=== PATIENT | male | born 1955 | race Two or more races ===

== ENCOUNTER 2019-02-25 16:55 | Emergency (ER) | payer MEDICARE, MEDICAID ==
[~2019-02-25] VITALS: Ht 170.2 cm; Wt 75.0 kg
[2019-02-25] MEDS ORDERED: TETANUS, DIPHTHERIA, PERTUSSIS VAC/PF 0.5ML (>7YR OLD) IM ONE (17:45)
[2019-02-25] MEDS ORDERED: FENTANYL CITRATE/PF 50MCG/ML 2ML VIAL IV ONE ×2 (17:45→22:00)
[2019-02-25 18:14] LABS: CLARITY URINE CLEAR (CLEAR); COLOR URINE YELLOW (YELLOW); KETONES URINE NEGATIVE (NEGATIVE); LEUKOCYTE ESTERASE URINE NEGATIVE (NEGATIVE); NITRITE URINE NEGATIVE (NEGATIVE); OCCULT BLOOD URINE NEGATIVE (NEGATIVE); PH URINE 5.5 (4.5-8.0); PROTEIN URINE 1+ (NEGATIVE); SPECIFIC GRAVITY URINE 1.027 (1.005-1.030)
[2019-02-25 19:00] LABS: BASOPHILS % 0.2 % (0.0-2.0); EOSINOPHILS % 0.6 % (0.0-5.0); HEMATOCRIT. 30.7 % (42.0-52.0); HEMOGLOBIN. 9.8 g/dL (14.0-18.0); LYMPHOCYTES % 40.3 % (20.0-50.0); MEAN CORPUSCULAR HEMOGLOBIN 17.7 pg (28.0-32.0); MEAN CORPUSCULAR VOLUME 55.4 fL (80.0-94.0); MEAN PLATELET VOLUME 8.6 fl (7.4-10.4); MONOCYTES % 3.7 % (2.0-8.0); NEUTROPHILS % 55.2 % (40.0-76.0); PLATELET 150 x1000/uL (130-400); RED BLOOD CELL COUNT 5.53 mill/uL (4.7-6.1); RED CELL DISTRIBUTION WIDTH 19.5 % (11.6-14.6)
[2019-02-25 19:06] LABS: CHLORIDE 107 mEq/L (98-107)
[2019-02-25 19:08] LABS: PARTIAL THROMBOPLASTIN TIME 22.2 sec (23.4-31.0); PROTHROMBIN TIME 10.4 sec (9.6-11.0)
[2019-02-25 19:57] LABS: PLATELET ESTIMATE NORMAL
[2019-02-25] MEDS ORDERED: IOHEXOL-300 100 ML BOTTLE ONE (20:44)
[2019-02-25 21:35] LABS: HEMATOCRIT. 30.5 % (42.0-52.0); HEMOGLOBIN. 9.6 g/dL (14.0-18.0); MEAN CORPUSCULAR HEMOGLOBIN 17.6 pg (28.0-32.0); MEAN CORPUSCULAR VOLUME 55.6 fL (80.0-94.0); MEAN PLATELET VOLUME 8.6 fl (7.4-10.4); PLATELET 179 x1000/uL (130-400); RED BLOOD CELL COUNT 5.48 mill/uL (4.7-6.1); RED CELL DISTRIBUTION WIDTH 19.6 % (11.6-14.6)
[2019-02-25 22:42] LABS: PLATELET ESTIMATE NORMAL
[2019-02-25 23:11] VITALS: BP 166/68
== END 2019-02-25 22:58 | disposition short-term general hospital (02) ==
LOC: ER 16:55
DX: S72.142A Displaced intertrochanteric fracture of left femur, initial encounter for closed fracture (principal); E11.9 Type 2 diabetes mellitus without complications; I10 Essential (primary) hypertension; E78.00 Pure hypercholesterolemia, unspecified; G31.89 Other specified degenerative diseases of nervous system; Z86.73 Personal history of transient ischemic attack (TIA), and cerebral infarction without residual deficits; W11.XXXA Fall on and from ladder, initial encounter; Y93.9 Activity, unspecified; Y92.9 Unspecified place or not applicable; Y99.8 Other external cause status
CPT/HCPCS: 36415; 70450; 72125; 73502; 73552; 74177; 80053; 81003; 82962; 85025; 85610; 85730; 86850; 86900; 86901; 90471; 90715; 96374; 96376; 99285; J3010; Q9967

== ENCOUNTER 2019-03-03 19:27 | Inpatient (IN) | payer MEDICARE, MEDICAID ==
[~2019-03-03] VITALS: Ht 170.2 cm; Wt 71.7 kg
[2019-03-03] MEDS: SODIUM CHLORIDE 0.9% 1,000 ML IV SCH (02:00)
[2019-03-03] MEDS ORDERED: SODIUM CHLORIDE 0.9% 1,000 ML IV ONE (20:01)
[2019-03-03] MEDS ORDERED: ONDANSETRON HCL 4MG/2ML INJ IV STA (20:01)
[2019-03-03] MEDS ORDERED: MORPHINE SULFATE 4 MG/ML CPJ (NOT FOR IM USE) IV STA (20:01)
[2019-03-03 21:00] LABS: CHLORIDE 99 mEq/L (98-107)
[2019-03-03 21:04] LABS: BASOPHILS % 0.8 % (0.0-2.0); EOSINOPHILS % 3.5 % (0.0-5.0); LYMPHOCYTES % 26.9 % (20.0-50.0); MEAN CORPUSCULAR HEMOGLOBIN 17.3 pg (28.0-32.0); MEAN CORPUSCULAR VOLUME 54.8 fL (80.0-94.0); MEAN PLATELET VOLUME 9.8 fl (7.4-10.4); MONOCYTES % 7.8 % (2.0-8.0); PLATELET 182 x1000/uL (130-400); RED BLOOD CELL COUNT 3.87 mill/uL (4.7-6.1); RED CELL DISTRIBUTION WIDTH 18.4 % (11.6-14.6)
[2019-03-03 21:09] LABS: HEMATOCRIT. 21.2 % (42.0-52.0); HEMOGLOBIN. 6.7 g/dL (14.0-18.0)
[2019-03-03 22:07] LABS: PLATELET ESTIMATE NORMAL
[2019-03-03] MEDS ORDERED: INSULIN LISPRO 100 UNITS/ML SUBCUT NR (22:30)
[2019-03-04] MEDS ORDERED: ONDANSETRON HCL 4MG/2ML INJ IV PRN
[2019-03-04] MEDS ORDERED: CLONIDINE 0.1MG TABLET PO PRN
[2019-03-04] MEDS ORDERED: IPRATROPIUM/ALBUTEROL 0.5-3(2.5)MG/3ML NEB NEB PRN
[2019-03-04] MEDS: HYDROMORPHONE HCL/PF 2MG/ML CPJ IV PRN ×3 (01:04→17:12)
[2019-03-04 05:25] LABS: MEAN CORPUSCULAR HEMOGLOBIN 17.8 pg (28.0-32.0); MEAN CORPUSCULAR VOLUME 54.8 fL (80.0-94.0); MEAN PLATELET VOLUME 8.9 fl (7.4-10.4); PLATELET 169 x1000/uL (130-400); RED BLOOD CELL COUNT 3.82 mill/uL (4.7-6.1)
[2019-03-04 05:27] LABS: CHLORIDE 102 mEq/L (98-107)
[2019-03-04 05:29] LABS: HEMATOCRIT. 20.9 % (42.0-52.0); HEMOGLOBIN. 6.8 g/dL (14.0-18.0)
[2019-03-04 05:35] LABS: TOTAL IRON BINDING CAPACITY 212 ug/dL (250-450)
[2019-03-04 07:21] LABS: PLATELET ESTIMATE NORMAL
[2019-03-04 10:00] VITALS: BP 137/58
[2019-03-04 10:50] VITALS: BP 129/74
[2019-03-04] MEDS: OMEPRAZOLE 20MG CAPSULE EXTENDED RELEASE PO SCH (11:11)
[2019-03-04] MEDS: ACETAMINOPHEN 325MG TABLET PO PRN (11:11)
[2019-03-04 11:15] VITALS: BP 137/58
[2019-03-04] MEDS ORDERED: DEXTROSE 50% WATER 50ML SYRINGE IV PRN (11:30)
[2019-03-04 12:20] VITALS: BP 137/58
[2019-03-04] MEDS: BLOOD SUGAR DIAGNOSTIC STRIP TEST SCH ×3 (12:59→21:20)
[2019-03-04] MEDS: INSULIN LISPRO 100 UNITS/ML SUBCUT SCH ×3 (13:29→21:20)
[2019-03-04] MEDS: SODIUM CHLORIDE 0.9% 1,000 ML IV SCH (13:42)
[2019-03-04 16:00] VITALS: BP 128/64
[2019-03-04] MEDS ORDERED: LISI10TA5 MT (18:28)
[2019-03-04] MEDS ORDERED: INSU100I28 SQ (18:28)
[2019-03-04] MEDS ORDERED: INSLIS SUBCUT (18:29)
[2019-03-04 20:00] VITALS: BP 138/60
[2019-03-04] MEDS: INSULIN GLARGINE UD 100 UNITS/ML SYR SUBCUT SCH (22:25)
[2019-03-05] VITALS: BP 148/58
[2019-03-05 00:57] LABS: HEMATOCRIT 24.3 % (42.0-52.0); HEMOGLOBIN 8.1 g/dL (14.0-18.0)
[2019-03-05] MEDS: SODIUM CHLORIDE 0.9% 1,000 ML IV SCH ×2 (03:01→17:28)
[2019-03-05 04:00] VITALS: BP 147/60
[2019-03-05] MEDS: BLOOD SUGAR DIAGNOSTIC STRIP TEST SCH ×4 (07:23→20:32)
[2019-03-05 08:00] VITALS: BP 159/65
[2019-03-05] MEDS: INSULIN LISPRO 100 UNITS/ML SUBCUT SCH ×4 (08:09→20:46)
[2019-03-05] MEDS: OMEPRAZOLE 20MG CAPSULE EXTENDED RELEASE PO SCH (08:09)
[2019-03-05] MEDS: HYDROMORPHONE HCL/PF 2MG/ML CPJ IV PRN (09:45)
[2019-03-05 12:00] VITALS: BP 159/66
[2019-03-05 16:00] VITALS: BP 131/63
[2019-03-05 20:00] VITALS: BP 141/47
[2019-03-05] MEDS: ACETAMINOPHEN 325MG TABLET PO PRN (20:39)
[2019-03-05] MEDS: INSULIN GLARGINE UD 100 UNITS/ML SYR SUBCUT SCH (22:08)
[2019-03-06] VITALS: BP 137/62
[2019-03-06 04:00] VITALS: BP 140/59
[2019-03-06] MEDS: SODIUM CHLORIDE 0.9% 1,000 ML IV SCH (05:22)
[2019-03-06] MEDS: BLOOD SUGAR DIAGNOSTIC STRIP TEST SCH ×3 (06:38→17:43)
[2019-03-06] MEDS: HYDROMORPHONE HCL/PF 2MG/ML CPJ IV PRN (06:44)
[2019-03-06] MEDS: OMEPRAZOLE 20MG CAPSULE EXTENDED RELEASE PO SCH (06:44)
[2019-03-06 08:00] VITALS: BP 148/64
[2019-03-06] MEDS: INSULIN LISPRO 100 UNITS/ML SUBCUT SCH ×3 (08:20→18:07)
[2019-03-06 12:00] VITALS: BP 138/70
[2019-03-06 12:25] LABS: HEMATOCRIT. 26.1 % (42.0-52.0); MEAN CORPUSCULAR HEMOGLOBIN 18.6 pg (28.0-32.0); MEAN CORPUSCULAR VOLUME 57.5 fL (80.0-94.0); MEAN PLATELET VOLUME 8.5 fl (7.4-10.4); PLATELET 260 x1000/uL (130-400); RED BLOOD CELL COUNT 4.54 mill/uL (4.7-6.1); RED CELL DISTRIBUTION WIDTH 18.9 % (11.6-14.6)
[2019-03-06 12:43] LABS: HEMOGLOBIN. 8.4 g/dL (14.0-18.0)
[2019-03-06 14:08] LABS: PLATELET ESTIMATE NORMAL
[2019-03-06] MEDS: ACETAMINOPHEN 325MG TABLET PO PRN (15:54)
[2019-03-06 16:00] VITALS: BP 129/71
[2019-03-06 16:54] VITALS: BP 129/71
== END 2019-03-06 18:51 | DRG 812 ==
LOC: ER 20:19 → 7WST 22:00 → CANRESERV 22:35 → ENRESERV 22:35 → EDBEDREQTM 03-04 00:21 → EDBEDREQSVC 03-04 00:21 → ENRESERV 03-04 07:36
PROVIDERS: ADMIT Internal Medicine; ATTEND Internal Medicine
PROC: 30233N1 Transfusion of Nonautologous Red Blood Cells into Peripheral Vein, Percutaneous Approach (ICD-10-PCS; principal; 2019-03-04)
DX: D56.9 Thalassemia, unspecified (principal); I69.354 Hemiplegia and hemiparesis following cerebral infarction affecting left non-dominant side; E87.1 Hypo-osmolality and hyponatremia; I42.2 Other hypertrophic cardiomyopathy; E44.1 Mild protein-calorie malnutrition; D64.9 Anemia, unspecified; I10 Essential (primary) hypertension; E11.9 Type 2 diabetes mellitus without complications; R26.9 Unspecified abnormalities of gait and mobility; H54.62 Unqualified visual loss, left eye, normal vision right eye; Z68.24 Body mass index [BMI] 24.0-24.9, adult
CPT/HCPCS: 36415; 71045; 73502; 80048; 82962; 83540; 83550; 85014; 85018; 86850; 86900; 86920; 93970; 97162; 97166; 99285; J1170; J1815; J2270; J2405; J7030; J7040; P9016

== ENCOUNTER 2019-03-06 18:55 | Inpatient (IN) | payer MEDICARE, MEDICAID ==
[~2019-03-06] VITALS: Ht 170.2 cm; Wt 80.7 kg
[~2019-03-06 18:55] MED LIST: INSLIS SUBCUT; INSU100I28 SQ; LISI10TA5 MT
[2019-03-06 19:00] VITALS: BP 140/54
[2019-03-06 20:00] VITALS: BP 140/54
[2019-03-06] MEDS ORDERED: DEXTROSE 50% WATER 50ML SYRINGE IV PRN (20:45)
[2019-03-06] MEDS ORDERED: IPRATROPIUM/ALBUTEROL 0.5-3(2.5)MG/3ML NEB HHN PRN (20:45)
[2019-03-06] MEDS ORDERED: CLONIDINE 0.1MG TABLET PO PRN (20:45)
[2019-03-06] MEDS ORDERED: ONDANSETRON HCL 4MG TABLET PO PRN (20:45)
[2019-03-06] MEDS: BLOOD SUGAR DIAGNOSTIC STRIP TEST SCH (21:49)
[2019-03-06] MEDS: INSULIN LISPRO 100 UNITS/ML SUBCUT SCH (21:58)
[2019-03-06] MEDS ORDERED: INSULIN GLARGINE UD 100 UNITS/ML SYR SUBCUT SCH ×2 (22:00→23:00)
[2019-03-07] MEDS: HYDROCODONE/ACETAMINOPHEN 5/325MG TABLET PO PRN ×3 (04:58→21:12)
[2019-03-07] MEDS: OMEPRAZOLE 20MG CAPSULE EXTENDED RELEASE PO SCH (05:40)
[2019-03-07] MEDS: INSULIN LISPRO 100 UNITS/ML SUBCUT SCH ×6 (06:30→21:07)
[2019-03-07] MEDS: BLOOD SUGAR DIAGNOSTIC STRIP TEST SCH ×4 (06:30→21:07)
[2019-03-07 07:49] LABS: HEMATOCRIT. 25.8 % (42.0-52.0); HEMOGLOBIN. 8.5 g/dL (14.0-18.0); MEAN CORPUSCULAR HEMOGLOBIN 18.9 pg (28.0-32.0); MEAN CORPUSCULAR VOLUME 57.8 fL (80.0-94.0); MEAN PLATELET VOLUME 8.8 fl (7.4-10.4); PLATELET 281 x1000/uL (130-400); RED BLOOD CELL COUNT 4.47 mill/uL (4.7-6.1); RED CELL DISTRIBUTION WIDTH 19.6 % (11.6-14.6)
[2019-03-07 07:57] LABS: CHLORIDE 102 mEq/L (98-107)
[2019-03-07 08:00] VITALS: BP 141/60
[2019-03-07] MEDS: ACETAMINOPHEN 325MG TABLET PO PRN (10:43)
[2019-03-07 10:47] LABS: TOTAL IRON BINDING CAPACITY 248 ug/dL (250-450)
[2019-03-07] MEDS: LISINOPRIL 10MG TABLET PO SCH (11:51)
[2019-03-07 13:50] VITALS: BP 132/73
[2019-03-07 14:16] LABS: NUCLEATED RED BLOOD CELLS 1 /100 WBC; PLATELET ESTIMATE NORMAL
[2019-03-07 20:00] VITALS: BP 123/55
[2019-03-07] MEDS: ATORVASTATIN CALCIUM 40MG TABLET PO SCH (21:02)
[2019-03-07] MEDS ORDERED: INSULIN GLARGINE UD 100 UNITS/ML SYR SUBCUT SCH (22:00)
[2019-03-08] MEDS: BLOOD SUGAR DIAGNOSTIC STRIP TEST SCH ×4 (06:15→21:26)
[2019-03-08] MEDS: OMEPRAZOLE 20MG CAPSULE EXTENDED RELEASE PO SCH (06:33)
[2019-03-08] MEDS: HYDROCODONE/ACETAMINOPHEN 5/325MG TABLET PO PRN ×2 (06:51→13:45)
[2019-03-08] MEDS: INSULIN LISPRO (LOW DOSE) 100 UNITS/ML SUBCUT SCH ×3 (06:54→16:46)
[2019-03-08] MEDS ORDERED: INSULIN LISPRO 100 UNITS/ML SUBCUT SCH (07:00)
[2019-03-08 07:13] LABS: HEMATOCRIT. 25.3 % (42.0-52.0); HEMOGLOBIN. 8.4 g/dL (14.0-18.0); MEAN CORPUSCULAR HEMOGLOBIN 19.3 pg (28.0-32.0); MEAN CORPUSCULAR VOLUME 57.8 fL (80.0-94.0); MEAN PLATELET VOLUME 8.8 fl (7.4-10.4); PLATELET 301 x1000/uL (130-400); RED BLOOD CELL COUNT 4.37 mill/uL (4.7-6.1); RED CELL DISTRIBUTION WIDTH 19.8 % (11.6-14.6)
[2019-03-08 07:40] LABS: FOLIC ACID (FOLATE) SERUM >20 ng/mL ng/mL (>5.38)
[2019-03-08 07:42] VITALS: BP 131/50
[2019-03-08] MEDS: LISINOPRIL 10MG TABLET PO SCH (08:07)
[2019-03-08] MEDS: INSULIN LISPRO 100 UNITS/ML SUBCUT SCH ×3 (08:08→16:48)
[2019-03-08 08:27] LABS: VITAMIN B12 SERUM 594 pg/mL (211-911)
[2019-03-08 08:44] LABS: CHLORIDE 103 mEq/L (98-107)
[2019-03-08 08:53] LABS: PHOSPHORUS 3.8 mg/dL (2.5-4.9)
[2019-03-08 08:54] LABS: LDL CHOLESTEROL 105 mg/dL (5-100); TOTAL IRON BINDING CAPACITY 246 ug/dL (250-450)
[2019-03-08 08:55] LABS: HDL CHOLESTEROL 25 mg/dL (40-59)
[2019-03-08 09:27] LABS: FERRITIN 350 ng/mL (22-322); PROSTRATE SPECIFIC AG TOTAL 0.23 ng/mL (0.0-4.0)
[2019-03-08] MEDS: ACETAMINOPHEN 325MG TABLET PO PRN (11:33)
[2019-03-08 13:41] LABS: PLATELET ESTIMATE NORMAL
[2019-03-08 20:00] VITALS: BP 104/51
[2019-03-08] MEDS: ATORVASTATIN CALCIUM 40MG TABLET PO SCH (20:46)
[2019-03-08] MEDS ORDERED: INSULIN GLARGINE UD 100 UNITS/ML SYR SUBCUT SCH (22:00)
[2019-03-09] MEDS: BLOOD SUGAR DIAGNOSTIC STRIP TEST SCH ×4 (06:32→20:04)
[2019-03-09] MEDS: OMEPRAZOLE 20MG CAPSULE EXTENDED RELEASE PO SCH (06:33)
[2019-03-09 07:35] VITALS: BP 139/55
[2019-03-09] MEDS: INSULIN LISPRO 100 UNITS/ML SUBCUT SCH ×3 (07:42→17:00)
[2019-03-09] MEDS: INSULIN LISPRO (LOW DOSE) 100 UNITS/ML SUBCUT SCH ×3 (07:42→16:59)
[2019-03-09] MEDS: ENOXAPARIN 40MG/0.4ML SYR SUBCUT SCH (08:13)
[2019-03-09] MEDS: LISINOPRIL 10MG TABLET PO SCH (08:13)
[2019-03-09] MEDS: HYDROCODONE/ACETAMINOPHEN 5/325MG TABLET PO PRN ×3 (08:15→16:54)
[2019-03-09 17:22] LABS: HEMATOCRIT. 25.8 % (42.0-52.0); HEMOGLOBIN. 8.3 g/dL (14.0-18.0); MEAN CORPUSCULAR HEMOGLOBIN 18.9 pg (28.0-32.0); MEAN CORPUSCULAR VOLUME 58.5 fL (80.0-94.0); MEAN PLATELET VOLUME 8.8 fl (7.4-10.4); PLATELET 295 x1000/uL (130-400); RED BLOOD CELL COUNT 4.42 mill/uL (4.7-6.1); RED CELL DISTRIBUTION WIDTH 19.9 % (11.6-14.6)
[2019-03-09 17:57] LABS: PLATELET ESTIMATE NORMAL
[2019-03-09 20:00] VITALS: BP 124/54
[2019-03-09] MEDS: ATORVASTATIN CALCIUM 40MG TABLET PO SCH (20:04)
[2019-03-09] MEDS: INSULIN GLARGINE UD 100 UNITS/ML SYR SUBCUT SCH (21:29)
[2019-03-10] MEDS: BLOOD SUGAR DIAGNOSTIC STRIP TEST SCH ×4 (06:00→21:11)
[2019-03-10] MEDS: OMEPRAZOLE 20MG CAPSULE EXTENDED RELEASE PO SCH (06:00)
[2019-03-10] MEDS: INSULIN LISPRO (LOW DOSE) 100 UNITS/ML SUBCUT SCH ×3 (06:52→16:47)
[2019-03-10] MEDS: INSULIN LISPRO 100 UNITS/ML SUBCUT SCH ×4 (06:53→17:32)
[2019-03-10 08:00] VITALS: BP 114/53
[2019-03-10] MEDS: LISINOPRIL 10MG TABLET PO SCH (08:04)
[2019-03-10] MEDS: ENOXAPARIN 40MG/0.4ML SYR SUBCUT SCH (08:04)
[2019-03-10] MEDS: HYDROCODONE/ACETAMINOPHEN 5/325MG TABLET PO PRN ×3 (08:05→15:04)
[2019-03-10 09:33] LABS: HEMATOCRIT. 28.6 % (42.0-52.0); HEMOGLOBIN. 9.2 g/dL (14.0-18.0); MEAN CORPUSCULAR HEMOGLOBIN 18.8 pg (28.0-32.0); MEAN CORPUSCULAR VOLUME 58.2 fL (80.0-94.0); MEAN PLATELET VOLUME 8.7 fl (7.4-10.4); PLATELET 320 x1000/uL (130-400); RED BLOOD CELL COUNT 4.91 mill/uL (4.7-6.1); RED CELL DISTRIBUTION WIDTH 20.2 % (11.6-14.6)
[2019-03-10 09:56] LABS: CHLORIDE 102 mEq/L (98-107)
[2019-03-10 12:13] LABS: PLATELET ESTIMATE NORMAL
[2019-03-10 20:00] VITALS: BP 98/41
[2019-03-10] MEDS: ATORVASTATIN CALCIUM 40MG TABLET PO SCH (21:35)
[2019-03-10] MEDS: INSULIN GLARGINE UD 100 UNITS/ML SYR SUBCUT SCH (21:35)
[2019-03-11] MEDS ORDERED: BLOOD SUGAR DIAGNOSTIC STRIP TEST SCH (03:00)
[2019-03-11] MEDS: BLOOD SUGAR DIAGNOSTIC STRIP TEST SCH ×4 (06:45→20:14)
[2019-03-11] MEDS: OMEPRAZOLE 20MG CAPSULE EXTENDED RELEASE PO SCH (06:45)
[2019-03-11] MEDS: HYDROCODONE/ACETAMINOPHEN 5/325MG TABLET PO PRN ×2 (08:13→14:16)
[2019-03-11] MEDS: LISINOPRIL 10MG TABLET PO SCH (08:14)
[2019-03-11] MEDS: ENOXAPARIN 40MG/0.4ML SYR SUBCUT SCH (08:14)
[2019-03-11 08:19] VITALS: BP 134/43
[2019-03-11] MEDS: INSULIN LISPRO (LOW DOSE) 100 UNITS/ML SUBCUT SCH ×3 (08:20→17:00)
[2019-03-11] MEDS: INSULIN LISPRO 100 UNITS/ML SUBCUT SCH ×3 (08:21→18:13)
[2019-03-11 20:00] VITALS: BP 123/57
[2019-03-11] MEDS: ATORVASTATIN CALCIUM 40MG TABLET PO SCH (20:14)
[2019-03-11] MEDS: INSULIN GLARGINE UD 100 UNITS/ML SYR SUBCUT SCH (21:46)
[2019-03-12] MEDS: BLOOD SUGAR DIAGNOSTIC STRIP TEST SCH ×4 (05:47→21:32)
[2019-03-12] MEDS: HYDROCODONE/ACETAMINOPHEN 5/325MG TABLET PO PRN ×3 (06:36→18:40)
[2019-03-12] MEDS: INSULIN LISPRO 100 UNITS/ML SUBCUT SCH ×3 (06:39→17:32)
[2019-03-12] MEDS: INSULIN LISPRO (LOW DOSE) 100 UNITS/ML SUBCUT SCH ×3 (06:40→17:30)
[2019-03-12 08:22] VITALS: BP 139/63
[2019-03-12] MEDS: FAMOTIDINE 20MG TABLET PO SCH ×2 (08:39→17:56)
[2019-03-12] MEDS: LISINOPRIL 10MG TABLET PO SCH (08:39)
[2019-03-12] MEDS: ENOXAPARIN 40MG/0.4ML SYR SUBCUT SCH (08:39)
[2019-03-12 09:32] LABS: HEMATOCRIT. 27.6 % (42.0-52.0); HEMOGLOBIN. 8.9 g/dL (14.0-18.0); MEAN CORPUSCULAR HEMOGLOBIN 18.7 pg (28.0-32.0); MEAN CORPUSCULAR VOLUME 57.9 fL (80.0-94.0); MEAN PLATELET VOLUME 8.6 fl (7.4-10.4); PLATELET 302 x1000/uL (130-400); RED BLOOD CELL COUNT 4.76 mill/uL (4.7-6.1); RED CELL DISTRIBUTION WIDTH 20.5 % (11.6-14.6)
[2019-03-12 09:44] LABS: CHLORIDE 104 mEq/L (98-107)
[2019-03-12 10:15] LABS: PLATELET ESTIMATE NORMAL
[2019-03-12 20:00] VITALS: BP 123/54
[2019-03-12] MEDS: ATORVASTATIN CALCIUM 40MG TABLET PO SCH (20:26)
[2019-03-12] MEDS: INSULIN GLARGINE UD 100 UNITS/ML SYR SUBCUT SCH (21:35)
[2019-03-13 04:06] LABS: 25-HYDROXY VITAMIN D3 21 ng/mL (.)
[2019-03-13] MEDS: INSULIN LISPRO (LOW DOSE) 100 UNITS/ML SUBCUT SCH ×3 (06:05→17:00)
[2019-03-13] MEDS: BLOOD SUGAR DIAGNOSTIC STRIP TEST SCH ×4 (06:05→21:16)
[2019-03-13] MEDS: INSULIN LISPRO 100 UNITS/ML SUBCUT SCH ×3 (07:49→17:19)
[2019-03-13] MEDS: HYDROCODONE/ACETAMINOPHEN 5/325MG TABLET PO PRN ×2 (07:56→13:27)
[2019-03-13 08:00] VITALS: BP 141/56
[2019-03-13] MEDS: LISINOPRIL 10MG TABLET PO SCH (08:03)
[2019-03-13] MEDS: FAMOTIDINE 20MG TABLET PO SCH ×2 (08:03→16:19)
[2019-03-13] MEDS: ENOXAPARIN 40MG/0.4ML SYR SUBCUT SCH (08:03)
[2019-03-13 13:15] VITALS: BP 136/53
[2019-03-13 20:00] VITALS: BP 129/66
[2019-03-13] MEDS: ATORVASTATIN CALCIUM 40MG TABLET PO SCH (20:24)
[2019-03-13] MEDS: INSULIN GLARGINE UD 100 UNITS/ML SYR SUBCUT SCH (21:25)
[2019-03-14] MEDS: INSULIN LISPRO (LOW DOSE) 100 UNITS/ML SUBCUT SCH ×3 (06:13→17:00)
[2019-03-14] MEDS: BLOOD SUGAR DIAGNOSTIC STRIP TEST SCH ×4 (06:13→21:00)
[2019-03-14] MEDS: HYDROCODONE/ACETAMINOPHEN 5/325MG TABLET PO PRN ×2 (06:46→13:39)
[2019-03-14] MEDS: INSULIN LISPRO 100 UNITS/ML SUBCUT SCH ×3 (06:50→17:44)
[2019-03-14 08:01] VITALS: BP 138/66
[2019-03-14] MEDS: FAMOTIDINE 20MG TABLET PO SCH ×2 (08:25→17:49)
[2019-03-14] MEDS: LISINOPRIL 10MG TABLET PO SCH (08:25)
[2019-03-14] MEDS: ENOXAPARIN 40MG/0.4ML SYR SUBCUT SCH (08:26)
[2019-03-14] MEDS: MULTIVITAMINS,THER W-MINERALS TABLET PO SCH (08:46)
[2019-03-14 20:00] VITALS: BP 121/49
[2019-03-14] MEDS: ATORVASTATIN CALCIUM 40MG TABLET PO SCH (22:23)
[2019-03-14] MEDS: INSULIN GLARGINE UD 100 UNITS/ML SYR SUBCUT SCH (23:58)
[2019-03-15] MEDS: HYDROCODONE/ACETAMINOPHEN 5/325MG TABLET PO PRN ×3 (06:24→13:47)
[2019-03-15] MEDS: BLOOD SUGAR DIAGNOSTIC STRIP TEST SCH ×4 (06:27→21:27)
[2019-03-15] MEDS: INSULIN LISPRO (LOW DOSE) 100 UNITS/ML SUBCUT SCH ×3 (06:28→17:00)
[2019-03-15] MEDS: INSULIN LISPRO 100 UNITS/ML SUBCUT SCH ×3 (07:22→17:24)
[2019-03-15 07:59] VITALS: BP 131/63
[2019-03-15] MEDS: ENOXAPARIN 40MG/0.4ML SYR SUBCUT SCH (08:33)
[2019-03-15] MEDS: LISINOPRIL 10MG TABLET PO SCH (08:33)
[2019-03-15] MEDS: FAMOTIDINE 20MG TABLET PO SCH ×2 (08:33→16:32)
[2019-03-15] MEDS: MULTIVITAMINS,THER W-MINERALS TABLET PO SCH (08:33)
[2019-03-15 11:05] LABS: HEMATOCRIT. 27.7 % (42.0-52.0); HEMOGLOBIN. 8.8 g/dL (14.0-18.0); MEAN CORPUSCULAR HEMOGLOBIN 18.4 pg (28.0-32.0); MEAN CORPUSCULAR VOLUME 58.1 fL (80.0-94.0); MEAN PLATELET VOLUME 8.6 fl (7.4-10.4); PLATELET 273 x1000/uL (130-400); RED BLOOD CELL COUNT 4.76 mill/uL (4.7-6.1); RED CELL DISTRIBUTION WIDTH 20.7 % (11.6-14.6)
[2019-03-15 11:11] LABS: CHLORIDE 103 mEq/L (98-107)
[2019-03-15 11:38] LABS: PLATELET ESTIMATE NORMAL
[2019-03-15 20:00] VITALS: BP 107/68
[2019-03-15] MEDS: ATORVASTATIN CALCIUM 40MG TABLET PO SCH (21:24)
[2019-03-15] MEDS: INSULIN GLARGINE UD 100 UNITS/ML SYR SUBCUT SCH (21:31)
[2019-03-16] MEDS: BLOOD SUGAR DIAGNOSTIC STRIP TEST SCH ×4 (06:28→20:06)
[2019-03-16] MEDS: INSULIN LISPRO (LOW DOSE) 100 UNITS/ML SUBCUT SCH ×3 (06:29→16:26)
[2019-03-16] MEDS: HYDROCODONE/ACETAMINOPHEN 5/325MG TABLET PO PRN ×2 (06:39→14:12)
[2019-03-16] MEDS: ENOXAPARIN 40MG/0.4ML SYR SUBCUT SCH (08:12)
[2019-03-16] MEDS: MULTIVITAMINS,THER W-MINERALS TABLET PO SCH (08:14)
[2019-03-16] MEDS: FAMOTIDINE 20MG TABLET PO SCH ×2 (08:14→16:24)
[2019-03-16] MEDS: LISINOPRIL 10MG TABLET PO SCH (08:22)
[2019-03-16] MEDS: INSULIN LISPRO 100 UNITS/ML SUBCUT SCH ×3 (08:26→17:35)
[2019-03-16 08:32] VITALS: BP 106/57
[2019-03-16] MEDS: VITAMINS A AND D OINT TUBE TOP SCH (09:00)
[2019-03-16] MEDS: TERBINAFINE HCL 1% CREAM 30GM TOP SCH (10:36)
[2019-03-16] MEDS ORDERED: LACTULOSE 20G/30ML UDC PO NR (11:15)
[2019-03-16 20:00] VITALS: BP_SYST 118; BP_SYST 119; BP_DIAS 45; BP_DIAS 56
[2019-03-16] MEDS: ATORVASTATIN CALCIUM 40MG TABLET PO SCH (20:06)
[2019-03-16] MEDS: INSULIN GLARGINE UD 100 UNITS/ML SYR SUBCUT SCH (22:04)
[2019-03-17] MEDS: BLOOD SUGAR DIAGNOSTIC STRIP TEST SCH ×4 (05:44→20:50)
[2019-03-17] MEDS: INSULIN LISPRO (LOW DOSE) 100 UNITS/ML SUBCUT SCH ×4 (05:46→17:00)
[2019-03-17] MEDS ORDERED: HYDROCODONE/ACETAMINOPHEN 5/325MG TABLET PO PRN (06:45)
[2019-03-17 08:00] VITALS: BP 112/49
[2019-03-17] MEDS: INSULIN LISPRO 100 UNITS/ML SUBCUT SCH ×3 (08:10→18:12)
[2019-03-17] MEDS: MULTIVITAMINS,THER W-MINERALS TABLET PO SCH (08:48)
[2019-03-17] MEDS: FAMOTIDINE 20MG TABLET PO SCH ×2 (08:48→18:07)
[2019-03-17] MEDS: ENOXAPARIN 40MG/0.4ML SYR SUBCUT SCH (08:50)
[2019-03-17] MEDS: LISINOPRIL 10MG TABLET PO SCH (08:50)
[2019-03-17] MEDS: TERBINAFINE HCL 1% CREAM 30GM TOP SCH (15:09)
[2019-03-17] MEDS: VITAMINS A AND D OINT TUBE TOP SCH (15:09)
[2019-03-17 20:00] VITALS: BP 128/50
[2019-03-17] MEDS: ATORVASTATIN CALCIUM 40MG TABLET PO SCH (20:50)
[2019-03-17] MEDS: INSULIN GLARGINE UD 100 UNITS/ML SYR SUBCUT SCH (22:40)
[2019-03-18] MEDS: BLOOD SUGAR DIAGNOSTIC STRIP TEST SCH ×4 (06:33→21:53)
[2019-03-18] MEDS: INSULIN LISPRO (LOW DOSE) 100 UNITS/ML SUBCUT SCH ×3 (07:00→17:00)
[2019-03-18] MEDS: INSULIN LISPRO 100 UNITS/ML SUBCUT SCH ×3 (07:28→17:34)
[2019-03-18 08:00] VITALS: BP 111/45
[2019-03-18] MEDS: TERBINAFINE HCL 1% CREAM 30GM TOP SCH (08:43)
[2019-03-18] MEDS: MULTIVITAMINS,THER W-MINERALS TABLET PO SCH (08:43)
[2019-03-18] MEDS: ENOXAPARIN 40MG/0.4ML SYR SUBCUT SCH (08:43)
[2019-03-18] MEDS: VITAMINS A AND D OINT TUBE TOP SCH (08:43)
[2019-03-18] MEDS: FAMOTIDINE 20MG TABLET PO SCH ×2 (08:44→17:29)
[2019-03-18] MEDS: LISINOPRIL 10MG TABLET PO SCH (08:44)
[2019-03-18] MEDS ORDERED: LACTULOSE 20G/30ML UDC PO SCH (09:00)
[2019-03-18] MEDS ORDERED: ERGOCALCIFEROL 50000UNITS CAPSULE PO SCH (10:00)
[2019-03-18 20:00] VITALS: BP 115/55
[2019-03-18] MEDS: ATORVASTATIN CALCIUM 40MG TABLET PO SCH (21:53)
[2019-03-18] MEDS: INSULIN GLARGINE UD 100 UNITS/ML SYR SUBCUT SCH (21:59)
[2019-03-19] MEDS: BLOOD SUGAR DIAGNOSTIC STRIP TEST SCH ×4 (06:12→21:16)
[2019-03-19] MEDS: INSULIN LISPRO (LOW DOSE) 100 UNITS/ML SUBCUT SCH ×3 (06:14→17:00)
[2019-03-19] MEDS: INSULIN LISPRO 100 UNITS/ML SUBCUT SCH ×3 (07:40→17:20)
[2019-03-19 08:00] VITALS: BP 129/59
[2019-03-19] MEDS: LISINOPRIL 10MG TABLET PO SCH (08:47)
[2019-03-19] MEDS: FAMOTIDINE 20MG TABLET PO SCH ×2 (08:47→17:20)
[2019-03-19] MEDS: MULTIVITAMINS,THER W-MINERALS TABLET PO SCH (08:47)
[2019-03-19] MEDS: ENOXAPARIN 40MG/0.4ML SYR SUBCUT SCH (08:47)
[2019-03-19] MEDS: VITAMINS A AND D OINT TUBE TOP SCH (08:48)
[2019-03-19] MEDS: TERBINAFINE HCL 1% CREAM 30GM TOP SCH (08:48)
[2019-03-19 20:00] VITALS: BP 112/62
[2019-03-19] MEDS: ATORVASTATIN CALCIUM 40MG TABLET PO SCH (20:29)
[2019-03-19] MEDS: INSULIN GLARGINE UD 100 UNITS/ML SYR SUBCUT SCH (22:09)
[2019-03-20] MEDS: INSULIN LISPRO (LOW DOSE) 100 UNITS/ML SUBCUT SCH ×3 (06:26→16:46)
[2019-03-20] MEDS: BLOOD SUGAR DIAGNOSTIC STRIP TEST SCH ×4 (06:26→21:42)
[2019-03-20] MEDS: HYDROCODONE/ACETAMINOPHEN 5/325MG TABLET PO PRN (06:45)
[2019-03-20] MEDS: INSULIN LISPRO 100 UNITS/ML SUBCUT SCH ×3 (08:03→17:29)
[2019-03-20 08:20] VITALS: BP 124/59
[2019-03-20] MEDS: FAMOTIDINE 20MG TABLET PO SCH ×2 (09:25→17:29)
[2019-03-20] MEDS: MULTIVITAMINS,THER W-MINERALS TABLET PO SCH (09:25)
[2019-03-20] MEDS: ENOXAPARIN 40MG/0.4ML SYR SUBCUT SCH (09:26)
[2019-03-20] MEDS: LISINOPRIL 10MG TABLET PO SCH (09:26)
[2019-03-20] MEDS: VITAMINS A AND D OINT TUBE TOP SCH (18:17)
[2019-03-20] MEDS: TERBINAFINE HCL 1% CREAM 30GM TOP SCH (18:17)
[2019-03-20 20:00] VITALS: BP_SYST 101; BP_SYST 120; BP_DIAS 59; BP_DIAS 77
[2019-03-20] MEDS: ATORVASTATIN CALCIUM 40MG TABLET PO SCH (20:44)
[2019-03-20] MEDS ORDERED: INSULIN GLARGINE UD 100 UNITS/ML SYR SUBCUT SCH (23:00)
[2019-03-21] MEDS: BLOOD SUGAR DIAGNOSTIC STRIP TEST SCH ×2 (06:25→11:48)
[2019-03-21] MEDS: INSULIN LISPRO (LOW DOSE) 100 UNITS/ML SUBCUT SCH ×2 (06:25→12:39)
[2019-03-21] MEDS: INSULIN LISPRO 100 UNITS/ML SUBCUT SCH ×2 (08:00→12:39)
[2019-03-21] MEDS: MULTIVITAMINS,THER W-MINERALS TABLET PO SCH (08:16)
[2019-03-21] MEDS: FAMOTIDINE 20MG TABLET PO SCH (08:16)
[2019-03-21] MEDS: LISINOPRIL 10MG TABLET PO SCH (08:16)
[2019-03-21] MEDS: ENOXAPARIN 40MG/0.4ML SYR SUBCUT SCH (08:17)
[2019-03-21] MEDS: VITAMINS A AND D OINT TUBE TOP SCH (08:17)
[2019-03-21] MEDS: TERBINAFINE HCL 1% CREAM 30GM TOP SCH (08:17)
[2019-03-21 08:26] VITALS: BP 112/58
[2019-03-21 09:48] VITALS: BP 112/58
[2019-03-21 12:07] VITALS: BP 116/62
[2019-03-21] MEDS: HYDROCODONE/ACETAMINOPHEN 5/325MG TABLET PO PRN (12:07)
[2019-03-21] MEDS ORDERED: INSULIN GLARGINE UD 100 UNITS/ML SYR SUBCUT SCH (22:00)
== END 2019-03-21 14:54 | disposition home health service (06) | DRG 536 ==
PROVIDERS: ADMIT Physical Medicine & Rehabilitation Spinal Cord Injury Medicine; ATTEND Internal Medicine
DX: S72.002A Fracture of unspecified part of neck of left femur, initial encounter for closed fracture (principal); E46 Unspecified protein-calorie malnutrition; E87.1 Hypo-osmolality and hyponatremia; I69.354 Hemiplegia and hemiparesis following cerebral infarction affecting left non-dominant side; E78.5 Hyperlipidemia, unspecified; I10 Essential (primary) hypertension; E55.9 Vitamin D deficiency, unspecified; L89.626 Pressure-induced deep tissue damage of left heel; H54.62 Unqualified visual loss, left eye, normal vision right eye; W11.XXXA Fall on and from ladder, initial encounter; D56.9 Thalassemia, unspecified; E11.65 Type 2 diabetes mellitus with hyperglycemia; E78.00 Pure hypercholesterolemia, unspecified; D72.819 Decreased white blood cell count, unspecified; B35.3 Tinea pedis; F06.31 Mood disorder due to known physiological condition with depressive features; L60.3 Nail dystrophy; Z68.27 Body mass index [BMI] 27.0-27.9, adult; Y93.89 Activity, other specified; Y92.89 Other specified places as the place of occurrence of the external cause; Z79.899 Other long term (current) drug therapy; Z79.4 Long term (current) use of insulin; Z87.891 Personal history of nicotine dependence; Z83.3 Family history of diabetes mellitus; Z82.49 Family history of ischemic heart disease and other diseases of the circulatory system; Y99.8 Other external cause status
CPT/HCPCS: 36415; 80048; 80061; 82270; 82306; 82607; 82728; 82746; 82962; 83036; 83540; 83550; 83735; 84100; 84134; 84153; 84443; 93923; 93970; 97110; 97112; 97116; 97162; 97166; 97530; 97535; J1650; J1815; G0103